=== PATIENT | female | born 1990 | race Caucasian/White ===

== ENCOUNTER 2022-01-27 23:12 | Inpatient (IN) | payer BC, MEDICAID ==
[~2022-01-27] VITALS: Ht 177.8 cm; Wt 90.7 kg
--- NOTE | 2022-01-27 23:12 | NUR ---
[facility]ALDIV[facility] TO BED 01.
--- NOTE | 2022-01-27 23:20 | NUR ---
31Y.O. F BIBA FROM HOME WITH C/O FEVER, STARTED TODAY. TEMP: 104.1 AND COOLING MEASURE WERE STARTED. PT IS HAVING SOB FROM THE PAIN, DIZZINESS, CONVULSIONS, N/V AND BODY ACHES. HAD A BABY 6WKS AGO. HR WAS TACHY AT 128. OTHER VITALS WNL, SKIN INTACT, A&OX4, AND WALKS WITH A BRACE. NKA
[2022-01-27] MEDS ORDERED: ACETAMINOPHEN EXTRA STRENGTH 500 MG TAB PO ONE (23:45)
[2022-01-27] MEDS ORDERED: NACL 0.9% 1,000 ML IV ONE (23:45)
[2022-01-27] MEDS ORDERED: LORazepam 2 MG/ML VIAL IVP ONE (23:45)
[2022-01-27 23:55] LABS: BASOPHILS # (AUTO) 0.1 K/uL (0.00-0.22); BASOPHILS % (AUTO) 0.5 % (0.0-2.0); EOSINOPHILS # (AUTO) 0.1 K/uL (0-0.4); EOSINOPHILS % (AUTO) 1.4 % (0.0-4.0); HEMATOCRIT 31.6 % (36-48); HEMOGLOBIN 10.4 g/dL (12.0-16.0); LYMPHOCYTES # (AUTO) 1.2 K/uL (2.5-16.5); LYMPHOCYTES % (AUTO) 11.9 % (20.5-51.1); MEAN CORPUSCULAR HEMOGLOBIN 28 pg (27-31); MEAN CORPUSCULAR HGB CONC 33 g/dL (33-37); MEAN CORPUSCULAR VOLUME 85.2 fL (80-94); MONOCYTES # (AUTO) 0.6 K/uL (0.8-1.0); MONOCYTES % (AUTO) 5.7 % (1.7-9.3); NEUTROPHILS # (AUTO) 7.9 K/uL (1.8-7.7); NEUTROPHILS % (AUTO) 80.5 % (42.2-75.2); PLATELET COUNT (AUTO) 371 K/uL (140-450); RED CELL DISTRIBUTION WIDTH 13.5 % (11.6-13.7); WHITE BLOOD COUNT (AUTO) 9.8 K/uL (4.8-10.8)
[2022-01-28 00:13] LABS: ALBUMIN 3.1 g/dL (3.4-5.0); ANION GAP 12.7 (8-16); CARBON DIOXIDE 26.4 mmol/L (21-32); CREATININE 0.9 mg/dL (0.6-1.3); POTASSIUM 4.1 mmol/L (3.5-5.1); TOTAL BILIRUBIN 0.2 mg/dL (0.0-1.0)
[2022-01-28] MEDS ORDERED: MORPHINE SULFATE 4 MG/ML SYR IVP ONE (00:40)
--- NOTE | 2022-01-28 00:48 | NUR ---
URINE COLLECTED AND WALKED TO LAB
[2022-01-28 01:02] LABS: APPEARANCE,URINE CLEAR (CLEAR); BILIRUBIN,URINE NEGATIVE (NEGATIVE); BLOOD, URINE 1+ (NEGATIVE); COLOR,URINE YELLOW (YELLOW); LEUKOCYTE ESTERASE ,URINE 1+ (NEGATIVE); NITRITE, URINE POSITIVE (NEGATIVE); UGLUCOSE NEGATIVE (NEGATIVE)
[2022-01-28] MEDS ORDERED: PIPERACILLIN/TAZOBACTAM 3.375 GM in DEXTROSE 5% 50 ML IV ONE (01:05)
[2022-01-28 01:16] LABS: BARBITURATE, URINE NEGATIVE ng/ml (NEG <=200); BENZODIAZEPINE, URINE NEGATIVE ng/mL (NEG <=200); CANNABINOID, URINE NEGATIVE ng/mL (NEG <=50); COCAINE, URINE NEGATIVE ng/mL (NEG <=300); OPIATE, URINE NEGATIVE ng/mL (NEG <=2000); PHENCYCLIDINE SCREEN,URINE NEGATIVE ng/mL (NEG <=25)
[2022-01-28 01:18] LABS: RBC,URINE 0-5 /HPF (0-5); WBC,URINE 20-60 /HPF (0-5)
[2022-01-28] MEDS ORDERED: PIPERACILLIN/TAZOBACTAM 3.375 GM VIAL IV ONE (01:35)
--- NOTE | 2022-01-28 01:42 | NUR ---
PT TAKEN TO RADIOLOGY
--- NOTE | 2022-01-28 01:50 | NUR ---
PT TAKEN TO CT
--- NOTE | 2022-01-28 01:53 | NUR ---
VLAD COLLECTED AND WALKED TO LAB. TOLD TO PLACE ON COUNTER BY LAB PERSONAL.
[2022-01-28] MEDS ORDERED: KETOROLAC 30 MG/ML VIAL IVP ONE (02:40)
--- NOTE | 2022-01-28 04:36 | NUR ---
PT AMBULATED TO AND FROM THE BATHROOM
[2022-01-28] MEDS ORDERED: GABA300C PO (06:58)
[2022-01-28] MEDS ORDERED: TRAM50TA1 PO (06:58)
--- NOTE | 2022-01-28 07:15 | NUR ---
Pt report given to SEPIDEH. Transfer of care at this time.
[2022-01-28] MEDS ORDERED: NACL 0.9% 1,000 ML IV SCH (07:30)
--- NOTE | 2022-01-28 07:38 | NUR ---
31 Y/O F BIBA FROM HOME LAST NIGHT. PT C/O GENERAL BODY ACHES/PAIN 8/10 THIS MORNING.HAD A BABY 6WKS AGO. PT VITALS THIS MORNIG ARE 97.5T, 84HR, 16R, 97O2RA, 111/66. PT IS RESTING. NKA
[2022-01-28] MEDS ORDERED: cefTRIAXone 1,000 MG VIAL ONE (08:49)
[2022-01-28] MEDS ORDERED: HYDROcodone/APAP 5/325 MG 1 TAB TAB PO PRN (09:45)
[2022-01-28] MEDS ORDERED: HYDROcodone/APAP 5/325 MG 1 TAB TAB ONE (09:49)
--- NOTE | 2022-01-28 09:50 | NUR ---
PT C/O BODY PAIN 01/16. WALKED PT TO THE BATHROOM. BREAKFAST AT BEDSIDE. WILL CALL DR REINOSO FOR PAIN MEDS.
--- NOTE | 2022-01-28 10:00 | NUR ---
GAVE PT NORCO BUR SHE IS ASKING FOR SOMETING STRONGER. TEXTED DR REINOSO.
--- NOTE | 2022-01-28 11:31 | NUR ---
PT HAS TEMP OF 100.2, C/O PAIN 05/18. TEXTED DR REINOSO FOR THE FEVER AND ALSO PT IS STILL ASKING FOR STRONGER PAIN MEDS.
--- NOTE | 2022-01-28 11:34 | NUR ---
DR REINOSO CALLED BACK, SHE WILL PUT IN MED ORDERS FOR FEVER AND PAIN.
[2022-01-28] MEDS ORDERED: MAG SULF 2000 MG/WATER PREMIX 50 ML IV PRN (11:35)
[2022-01-28] MEDS ORDERED: ACETAMINOPHEN 325 MG TAB PO PRN ×2 (11:35→16:00)
[2022-01-28] MEDS ORDERED: ONDANSETRON 4 MG/2 ML VIAL IM/IVP PRN (11:35)
[2022-01-28] MEDS ORDERED: POTASSIUM CHLORIDE 10 MEQ TABER PO PRN (11:35)
[2022-01-28] MEDS ORDERED: LORazepam 2 MG/ML VIAL IM/IVP PRN (11:35)
[2022-01-28] MEDS ORDERED: ZOLPIDEM 5 MG TAB PO PRN (11:35)
[2022-01-28] MEDS ORDERED: DOCUSATE SODIUM 100 MG GELCAP PO PRN (11:35)
[2022-01-28] MEDS: GABAPENTIN 300 MG CAP PO SCH ×2 (12:19→16:17)
[2022-01-28] MEDS ORDERED: LORazepam 1 MG TAB PO PRN (12:25)
[2022-01-28] MEDS: MORPHINE SULFATE 2 MG/ML SYR IVP PRN (12:26)
[2022-01-28] MEDS: NACL 0.9% 1,000 ML IV SCH (12:33)
[2022-01-28 13:32] LABS: PROTHROMBIN TIME 9.9 secs (10.8-13.4)
--- NOTE | 2022-01-28 14:48 | NUR ---
Pt report given to IRMA HARRELL. Transfer of care at this time.
--- NOTE | 2022-01-28 14:49 | NUR ---
Chart checked and completed. The patient's care was reviewed and supervised by Katja Dowd RN.
[2022-01-28 15:00] VITALS: BP 117/84
[2022-01-28] MEDS ORDERED: HYDROmorphone 1 MG/ML AMP IVP SCH (15:00)
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
[2022-01-28 15:47] LABS: BASOPHILS # (AUTO) 0.1 K/uL (0.00-0.22); BASOPHILS % (AUTO) 0.8 % (0.0-2.0); EOSINOPHILS # (AUTO) 0.1 K/uL (0-0.4); EOSINOPHILS % (AUTO) 1.3 % (0.0-4.0); HEMATOCRIT 30.3 % (36-48); LYMPHOCYTES # (AUTO) 2.7 K/uL (2.5-16.5); MEAN CORPUSCULAR HEMOGLOBIN 28 pg (27-31); MEAN CORPUSCULAR HGB CONC 33 g/dL (33-37); MEAN CORPUSCULAR VOLUME 85.2 fL (80-94); MONOCYTES # (AUTO) 0.9 K/uL (0.8-1.0); MONOCYTES % (AUTO) 7.8 % (1.7-9.3); NEUTROPHILS # (AUTO) 7.7 K/uL (1.8-7.7); NEUTROPHILS % (AUTO) 67.1 % (42.2-75.2); PLATELET COUNT (AUTO) 360 K/uL (140-450); RED BLOOD CELL COUNT(AUTO) 3.56 MIL/uL (4.20-5.40); RED CELL DISTRIBUTION WIDTH 13.8 % (11.6-13.7); WHITE BLOOD COUNT (AUTO) 11.5 K/uL (4.8-10.8)
[2022-01-28] MEDS ORDERED: IBUPROFEN 600 MG TAB PO PRN (16:00)
[2022-01-28 16:07] LABS: ALBUMIN 2.9 g/dL (3.4-5.0); ANION GAP 8.2 (8-16); CARBON DIOXIDE 27.9 mmol/L (21-32); CREATININE 0.8 mg/dL (0.6-1.3); POTASSIUM 4.1 mmol/L (3.5-5.1); TOTAL BILIRUBIN 0.2 mg/dL (0.0-1.0)
--- NOTE | 2022-01-28 16:20 | NUR ---
PATIENT HAS BEEN SCREENED AND CATEGORIZED LOW NUTRITION RISK. PATIENT WILL BE SEEN WITHIN 7 DAYS OF ADMISSION. 02/03/[address]
--- NOTE | 2022-01-28 17:00 | NUR ---
RE-ASSESSED PT'S TEMP WENT DOWN TO 101.6 WILL CONTINUE TO MONITOR.
--- NOTE | 2022-01-28 18:28 | NUR ---
PT'S CURRENT TEMPERATURE IS 100.0 ORALLY, COOLING MEASURES IN PLACE.
--- NOTE | 2022-01-28 19:30 | NUR ---
RECEIVED PT REPORT FROM AM SHIFT NURSE FOR CONTINUITY OF CARE. A/A/O X 4, FAMILY AT BEDSIDE.ON ROOM AIR. BREATHING EQUAL AND UNLABORED. SKIN, WARM, DRY AND INTACT. IV ON R AC G 20, INFUSING WELL. DENIES PAIN AT THIS TIME. AFEBRILE. ALL PRECAUTIONS IN PLACE. CALL LIGHT WITHIN REACH. WILL CONTINUE TO MONITOR.
--- NOTE | 2022-01-28 19:30 | NUR ---
ENDORSED PT TO BAR WELDER NURSE FOR CONTINUITY OF CARE.
--- NOTE | 2022-01-28 19:31 | NUR ---
ALSO ENDORSED TO CEMENT TESTER ASSISTANT NURSE THAT PER ORDER TO ALTERNATE TYLENOL AND MOTRIN. SIGNIFICANT OTHER AT BEDSIDE
[2022-01-28 20:00] VITALS: BP 111/57
[2022-01-28] MEDS: DULoxetine 30 MG CAPDR PO SCH ×2 (20:06→21:00)
[2022-01-28] MEDS: MEROPENEM 1,000 MG in NACL 0.9% 50 ML IV SCH (20:06)
--- NOTE | 2022-01-28 21:00 | NUR ---
DUE MEDS GIVEN. PT REFUSED CYMBALTA. EDUCATION GIVEN THE RISK OF NOT TAKING THE MEDICATION. PT VERBALIZED UNDERSTANDING.
--- NOTE | 2022-01-28 22:00 | NUR ---
PT ASSISTED TO RESTROOM. MOM AT BEDSIDE. PT TOLERATED WELL. NO COMPLAINS AT THIS TIME. ALL NEEDS MET. ALL PRECAUTIONS IN PLACE.CALL LIGHT WITHIN REACH. WILL CONTINUE TO MONITOR.
[2022-01-29] VITALS: BP 91/59
--- NOTE | 2022-01-29 01:30 | NUR ---
PT ASSISTED TO RESTROOM. PT REQUESTED TO HAVE BEDSHEETS CHANGED. PT TOLERATED WELL. AFEBRILE.NO COMPLAINS AT THIS TIME. ALL NEEDS MET. ALL PRECAUTIONS IN PLACE.CALL LIGHT WITHIN REACH. WILL CONTINUE TO MONITOR.
--- NOTE | 2022-01-29 02:53 | NUR ---
PT ASLEEP. BREATHING EQUAL AND UNLABORED. NO DISTRESS NOTED. WILL CONTINUE TO MONITOR.
[2022-01-29 04:00] VITALS: BP 104/60
[2022-01-29] MEDS: NACL 0.9% 1,000 ML IV SCH ×2 (04:50→20:55)
[2022-01-29] MEDS: MEROPENEM 1,000 MG in NACL 0.9% 50 ML IV SCH ×3 (04:51→20:20)
--- NOTE | 2022-01-29 06:54 | NUR ---
PT IS STABLE.NO ACUTE EVENTS THROUGHOUT THE NIGHT. ALL NEEDS MET. NO S/SX OF DISTRESS AT THIS TIME. NO COMPLAINS OF PAIN. ALL PRECAUTIONS IN PLACE. CALL LIGHT WITHIN REACH. WILL ENDORSE TO AM SHIFT NURSE.
--- NOTE | 2022-01-29 07:30 | NUR ---
OPENING NOTE: REPORT RCDE FROM OUT GOING NOC RN, ALL CARES ASSUMED.
[2022-01-29 07:36] LABS: BASOPHILS # (AUTO) 0.1 K/uL (0.00-0.22); BASOPHILS % (AUTO) 0.7 % (0.0-2.0); EOSINOPHILS # (AUTO) 0.1 K/uL (0-0.4); EOSINOPHILS % (AUTO) 1.5 % (0.0-4.0); HEMATOCRIT 30.9 % (36-48); HEMOGLOBIN 10.1 g/dL (12.0-16.0); LYMPHOCYTES # (AUTO) 2.6 K/uL (2.5-16.5); LYMPHOCYTES % (AUTO) 31.1 % (20.5-51.1); MEAN CORPUSCULAR HEMOGLOBIN 28 pg (27-31); MEAN CORPUSCULAR HGB CONC 33 g/dL (33-37); MEAN CORPUSCULAR VOLUME 86.7 fL (80-94); MONOCYTES # (AUTO) 0.9 K/uL (0.8-1.0); MONOCYTES % (AUTO) 10.2 % (1.7-9.3); NEUTROPHILS # (AUTO) 4.8 K/uL (1.8-7.7); NEUTROPHILS % (AUTO) 56.5 % (42.2-75.2); PLATELET COUNT (AUTO) 350 K/uL (140-450); RED BLOOD CELL COUNT(AUTO) 3.57 MIL/uL (4.20-5.40); RED CELL DISTRIBUTION WIDTH 13.8 % (11.6-13.7); WHITE BLOOD COUNT (AUTO) 8.4 K/uL (4.8-10.8)
[2022-01-29 08:00] VITALS: BP 113/73
[2022-01-29 08:02] LABS: ANION GAP 8.9 (8-16); CARBON DIOXIDE 27.1 mmol/L (21-32); CREATININE 0.7 mg/dL (0.6-1.3)
[2022-01-29 08:04] LABS: CHOL/HDL RATIO 3.4 (1-4.5); MAGNESIUM 2.1 mg/dL (1.8-2.4); PHOSPHORUS 3.9 mg/dL (2.5-4.9)
[2022-01-29] MEDS: GABAPENTIN 300 MG CAP PO SCH ×3 (08:09→16:13)
[2022-01-29] MEDS: DULoxetine 30 MG CAPDR PO SCH ×2 (08:09→21:00)
--- NOTE | 2022-01-29 08:10 | NUR ---
AM INTRODUCTION MADE, PATIENT IS FRIENDLY AND COOPERATIVE TO SPEAK WITH, DENIES PAIN AND OR DISCOMFORT. BED LOW AND LOCKED FOR SAFETY, CALL LIGHT IN REACH. NEEDS MET AT THIS TIME. ASSISTED PATIENT TO RESTROOM, GAIT STEADY WITH NO SIGNS OF WEAKNESS NOTED.
--- NOTE | 2022-01-29 08:38 | NUR ---
DR. RAMIREZ MAKING ROUNDS, VERBAL BEDSIDE REPORT GIVEN. NO NEW ORDERS. MD TO REVIEW CHART.
--- NOTE | 2022-01-29 10:16 | NUR ---
PATIENT TEARFUL, EXPRESSING THE WANT TO GO HOME AND BE WITH HER BABY. ENCOURAGED PATIENT TO EXPRESS HER FEELINGS, PATIENT CALM AFTER CONVERSATION AND REDIRECTION.
[2022-01-29] MEDS: HYDROcodone/APAP 5/325 MG 1 TAB TAB PO PRN ×2 (11:23→17:16)
--- NOTE | 2022-01-29 11:23 | NUR ---
5/10 Pain to Lower Abd, PRN given.
[2022-01-29 12:00] VITALS: BP 109/66
[2022-01-29] MEDS: MORPHINE SULFATE 2 MG/ML SYR IVP PRN (12:46)
--- NOTE | 2022-01-29 12:46 | NUR ---
10/10 LOWER ABD PAIN, MORPHINE GIVEN PRN PER ORDER.
--- NOTE | 2022-01-29 13:31 | NUR ---
PATIENT STATES, MORPHINE IS NOT EFFECTIVE IN TREATING PAIN, PATIENT IS REQUESTING DILAUDID, WILL MAKE MD AWARE.
--- NOTE | 2022-01-29 14:13 | NUR ---
DR. REINOSO MAKING ROUNDS, BEDSIDE REPORT GIVEN. MD TO REVIEW CHART.
--- NOTE | 2022-01-29 15:36 | NUR ---
RN ROUNDS PATIENT RESTING COMFORTABLY IN NO ACUTE DISTRESS AND OR DISCOMFORT. SAFETY PRECAUTIONS IN PLACE, BED LOW AND LOCKED FOR SAFETY. ALL NEEDS MET AT THIS TIME.
[2022-01-29 16:00] VITALS: BP 111/68
--- NOTE | 2022-01-29 16:45 | NUR ---
DC PLANNING: THE PATIENT PRESENTED FROM HOME WITH C/O RLQ PAIN,N/V. PATIENT IS 1.5 MONTHS POST , S/P . T MAX IN ED 104, UA POSITIVE, BLOOD AND URINE CULTURES IN PROCESS. GIVEN IVF'S, ANALGESICS AND ZOSYN IN THE ED, CONTINUED ON MEREM AND IVF'S. CM SPOKE WITH THE PATIENT AT BEDSIDE AND CONFIRMED HER ADDRESS AND PHONE NUMBER. THE PATIENT WILL DC TO HER MOTHER HOUSE, ADDRESS [address] [id number]. THE PATIENT DELIVERED AT [facility] IN DECEMBER, HAD FEVERS AT HOME AND DECIDED TO COME INTO ED. THE PATIENT IS INDEPENDENT IN ALL ACTIVITIES AND LIVES WITH HER BOYFRIEND. DC PLAN IS TO HOME, WILL ARRANGE HOME HEALTH IF CONTINUED IV ABX ARE NEEDED. CM WILL FOLLOW.
--- NOTE | 2022-01-29 17:17 | NUR ---
5/10 Pain to Lower Abd, PRN given per orders.
--- NOTE | 2022-01-29 17:40 | NUR ---
PATIENT IN BED, NO ACUTE DISTRESS NOTED, C/O PAIN, PRN NO T EFFECTIVE AT THIS TIME, EDUCATION PROVIDED ON PAIN MEDICATION. PATIENT VERBALIZED UNDERSTANDING.
--- NOTE | 2022-01-29 18:55 | NUR ---
CLOSING NOTE: REPORT GIVEN TO INCOMING NOC RN, ALL CARES ENDORSED.
[2022-01-29 20:00] VITALS: BP 111/63
--- NOTE | 2022-01-29 20:00 | NUR ---
RECEIVED REPORT FROM MORNING SHIFT NURSE. PATIENT IS AOX4, AMBULATORY & ON ROOM AIR. PATIENT IS ON REGULAR DIET AND CONTINENT. PATIENT HAS IV ON RIGHT AC GAUGE 22 AND REFUSE IVF, NS. CALL LIGHT WITHIN REACH. ALL SAFETY PRECAUTION WAS IMPLEMENTED.
--- NOTE | 2022-01-29 20:20 | NUR ---
ALL SCHEDULED PRESCRIBED MEDIATION WAS GIVEN. PATIENT TOLERATE IT WELL. CALL LIGHT IS IN PLACED. ALL SAFETY MEASURES WAS IMPLEMENTED. WILL CONTINUE TO MONITOR.
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
[2022-01-30] VITALS: BP 95/50
--- NOTE | 2022-01-30 | NUR ---
PATIENT IS COMPLAIN FOR HEADACHE. PATIENT RATE IT 4 OUT OF 10. PRN PAIN MEDICATION WAS GIVEN. WILL CONTINUE TO MONITOR.
[2022-01-30] MEDS: HYDROcodone/APAP 5/325 MG 1 TAB TAB PO PRN (00:20)
--- NOTE | 2022-01-30 01:00 | NUR ---
PATIENT WAS GIVEN WARM BLANKET PER PATIENT'S REQUEST WELL TURNING OFF THE ROOM LIGHT AND LEFT THE RESTROOM LIGHTS ON. CALL LIGHT WITHIN REACH. ALL SAFETY PRECAUTION WAS IMPLEMENTED.
--- NOTE | 2022-01-30 03:00 | NUR ---
PATIENT IS ON SLEEP. CHEST RISE AND FALL WAS NOTED SATING AT 97% WITH SINUS TACHYCARDIA. CALL LIGHT WITHIN REACH. ALL SAFETY MEASURES IMPLEMENTED. WILL CONTINUE AND MONITOR.
[2022-01-30 04:00] VITALS: BP 119/71
[2022-01-30] MEDS: MEROPENEM 1,000 MG in NACL 0.9% 50 ML IV SCH (04:36)
--- NOTE | 2022-01-30 06:30 | NUR ---
PT REPORTED SHE IS FRUSTRATED AND WANTS TO GO HOME AND SIGN AMA. REPORTED TO DR REINOSO AND [employer] AND [employer] MAN TERRY. PT SIGNED AMA. ALL BELONGINGS WITH PATIENT. PT WALKED TO LOBBY ON HER OWN.
[2022-01-30 07:19] LABS: ANION GAP 10.3 (8-16); CARBON DIOXIDE 25.9 mmol/L (21-32); CREATININE 0.7 mg/dL (0.6-1.3); POTASSIUM 4.2 mmol/L (3.5-5.1)
[2022-01-30 07:29] LABS: BASOPHILS # (AUTO) 0.1 K/uL (0.00-0.22); BASOPHILS % (AUTO) 0.8 % (0.0-2.0); EOSINOPHILS # (AUTO) 0.2 K/uL (0-0.4); EOSINOPHILS % (AUTO) 2.8 % (0.0-4.0); HEMATOCRIT 30.3 % (36-48); LYMPHOCYTES # (AUTO) 3.5 K/uL (2.5-16.5); LYMPHOCYTES % (AUTO) 44.5 % (20.5-51.1); MEAN CORPUSCULAR HEMOGLOBIN 28 pg (27-31); MEAN CORPUSCULAR HGB CONC 33 g/dL (33-37); MEAN CORPUSCULAR VOLUME 85.4 fL (80-94); MONOCYTES # (AUTO) 0.7 K/uL (0.8-1.0); MONOCYTES % (AUTO) 9.1 % (1.7-9.3); NEUTROPHILS # (AUTO) 3.3 K/uL (1.8-7.7); NEUTROPHILS % (AUTO) 42.8 % (42.2-75.2); PLATELET COUNT (AUTO) 420 K/uL (140-450); RED BLOOD CELL COUNT(AUTO) 3.55 MIL/uL (4.20-5.40); RED CELL DISTRIBUTION WIDTH 13.6 % (11.6-13.7); WHITE BLOOD COUNT (AUTO) 7.8 K/uL (4.8-10.8)
[2022-01-30 08:40] LABS: MAGNESIUM 2.2 mg/dL (1.8-2.4); PHOSPHORUS 4.2 mg/dL (2.5-4.9)
[2022-01-30] MEDS ORDERED: CEPH-588 PO (10:37)
== END 2022-01-30 06:30 | disposition left against medical advice (07) | DRG 871 ==
LOC: MED 23:12 → MTU 01-28 07:39
DX: A41.59 Other Gram-negative sepsis (principal); E43 Unspecified severe protein-calorie malnutrition; N12 Tubulo-interstitial nephritis, not specified as acute or chronic; E83.51 Hypocalcemia; Z20.822 Contact with and (suspected) exposure to COVID-19; N71.9 Inflammatory disease of uterus, unspecified; G89.29 Other chronic pain; M54.9 Dorsalgia, unspecified; G62.9 Polyneuropathy, unspecified; N93.8 Other specified abnormal uterine and vaginal bleeding; Z53.29 Procedure and treatment not carried out because of patient's decision for other reasons; Z98.891 History of uterine scar from previous surgery; Z98.1 Arthrodesis status; Z68.28 Body mass index [BMI] 28.0-28.9, adult
CPT/HCPCS: 36415; 71045; 80048; 80053; 80305; 81001; 83036; 83605; 83690; 83735; 83880; 84100; 84134; 84436; 84443; 84703; 85025; 85610; 85730; 87040; 87081; 87086; 96361; 96365; 96375; 99291; J0696; J1170; J1885; J2060; J2185; J2270; J2543; J7030; J7060; Q0092; Q9967